=== PATIENT | female | born 1975 | race Caucasian/White ===

== ENCOUNTER 2016-08-20 13:37 | Emergency (ER) | payer BC ==
[2016-08-20 13:44] VITALS: BP 111/53; PULSE 64; TEMP 97.9; BMI 31.3
--- NOTE | 2016-08-20 13:50 | PDOC ---
History of Present Illness - General Chief Complaint: Injury Stated Complaint: LT ELBOW PAIN History Source: Patient Exam Limitations: No Limitations - History of Present Illness Initial Comments: 08/20/16 13:47 41y F no pmhx presenst s/p mechanical fall - states she fell fowrard, landing on her L elbow after slipping on some salt. The pt denies any head injury, neck pain, back pain or pain elswhere. +pain when she moves her L arm and mild tingling in the extremities. denies any weakness, wounds. no pain elswehre. Past History - Past Medical History Allergies/Adverse Reactions: Allergies Allergy/AdvReac Type Severity Reaction Status Date / Time Sulfa (Sulfonamide Allergy Rash Verified 06/14/15 21:37 Antibiotics) Home Medications: Ambulatory Orders NK [No Known Home Medication] 08/20/16 Anemia: No Asthma: No Cancer: No GI Disorders: Yes (GERD) Psychiatric Problems: Yes (anxeity) - Immunization History Immunization Up to Date: Yes - Psycho/Social/Smoking Cessation Hx Anxiety: No Suicidal Ideation: No Smoking Status: No Smoking History: Never smoked Have you smoked in the past 12 months: No Number of Cigarettes Smoked Daily: 0 Hx Alcohol Use: Yes (6-8 drinks a week) Drug/Substance Use Hx: No Substance Use Type: None Review of Systems - Review of Systems Able to Perform ROS?: Yes Comments:: 08/20/16 13:47 Constitutional - no reported Fever, Chills, weakness, HEENT: no reported vision changes, sore throat Musculskelatal - +L elboiw pain no reported back pain, joint swelling skin - no reported bruising, erythema, rash neurological: no reported headache, numbness, focal weakness, tingling, ataxia, weakness hematologic: no reported anemia, easy bruising, easy bleeding *Physical Exam - Vital Signs Last Vital Signs Temp Pulse Resp BP Pulse Ox 97.9 F 64 16 111/53 100 08/20/16 13:39 08/20/16 13:39 08/20/16 13:39 08/20/16 13:39 08/20/16 13:39 - Physical Exam Comments: 08/20/16 13:48 GENERAL: The patient is awake, alert, and fully oriented, Nontoxic - in no acute distress. HEAD: Normocephalic, atraumatic. EXTREMITIES: minimal ttp on the L olecrenon, no pain on latera/medial epicondyle , no pain on shoulder/humers, sensation intact, n/v intact otherwise. able to supinate/pronate, flex extend elbow, no limitation of ROM of shoulder/ wrist/hand. ED Treatment Course - RADIOLOGY Radiology Studies Ordered: Category Date Time Status ELBOW-LEFT [RAD] Stat Radiology 08/20/16 13:40 Ordered Medical Decision Making - Medical Decision Making 08/20/16 13:49 suspect elbow contusion s/p mechanical fall no other injuries or complaints doubt fx but with localized tenderness in setting of trauma will obtain xray pt declines pain medications currently 08/20/16 14:06 xrays negative for acute fracture no signs of fat pad noted will dc the pt with supportive measures and pmd fu return precautions were discussed I discussed the physical exam findings, ancillary test results and final diagnoses with the patient. I answered all of the patient's questions. The patient was satisfied with the care received and felt comfortable with the discharge plan and treatment plan. The patient will call their primary care physician within 24 hours to arrange follow-up and will return to the Emergency Department with any new, persistent or worsening symptoms. *DC/Admit/Observation/Transfer Diagnosis at time of Disposition: Elbow pain, left - Discharge Dispostion Disposition: HOME Condition at time of disposition: Improved Admit: No - Referrals Referrals: Alessandro Lezama MD [Primary Care Provider] - - Patient Instructions Printed Discharge Instructions: DI for Elbow Pain Additional Instructions: Return to the emergency department immediately with ANY new, persistent or worsening symptoms. Take ibuprofen or Tylenol as needed for pain. You MUST call and follow up with your doctor in 3-4 days for further evaluation of your symptoms. Results were discussed with you. Please make sure your doctor reviews the results of your emergency evaluation.
== END 2016-08-20 14:17 | disposition home or self-care (01) ==
LOC: FER 13:37
DX: M25.522 Pain in left elbow (principal); W18.39XA Other fall on same level, initial encounter; Y93.9 Activity, unspecified; Y92.9 Unspecified place or not applicable; F41.9 Anxiety disorder, unspecified; K21.9 Gastro-esophageal reflux disease without esophagitis
CPT/HCPCS: 73070-TC-LT; 99282-25

== ENCOUNTER 2017-07-30 07:07 | Emergency (ER) | payer BC ==
[2017-07-30] MEDS ORDERED: ACETAMINOPHEN 325 MG TABLET (FP) PO ONE (07:17)
[2017-07-30 07:25] VITALS: BP 122/44; PULSE 79; TEMP 98.4; BMI 31.3
--- NOTE | 2017-07-30 07:25 | PDOC ---
History of Present Illness - General Chief Complaint: Injury Stated Complaint: left knee injury, back pain Time Seen by Provider: 07/30/17 07:16 History Source: Patient Exam Limitations: No Limitations - History of Present Illness Initial Comments: 07/30/17 07:22 42y F no pmhx presents with complaint of fall. The pt was coming out of her house when she slipped off ice on her porch and she landed on her L knee. She saw a little cut and contnued to come here. Here she noticed sh was bleeding profusely from her knee. She endorses yeimi epain to her L knee/mueller. She also noticed soreness in her lower back. She was able to break her fall on her hands and didnt hit her head/face. no neck pain. no loc. tetanus UTD (in 2015 s/p lac) PMD: Teja Past History - Past Medical History Allergies/Adverse Reactions: Allergies Allergy/AdvReac Type Severity Reaction Status Date / Time Sulfa (Sulfonamide Allergy Rash Verified 07/30/17 07:11 Antibiotics) Home Medications: Ambulatory Orders Ciprofloxacin [Cipro (Restricted To Id)] 500 mg PO Q12H 07/30/17 Anemia: No Asthma: No Cancer: No GI Disorders: Yes (GERD) Psychiatric Problems: Yes (anxeity) - Immunization History Immunization Up to Date: Yes - Suicide/Smoking/Psychosocial Hx Smoking Status: No Smoking History: Never smoked Have you smoked in the past 12 months: No Number of Cigarettes Smoked Daily: 0 Hx Alcohol Use: Yes (6-8 drinks a week) Drug/Substance Use Hx: No Substance Use Type: None Review of Systems - Review of Systems Able to Perform ROS?: Yes Comments:: 07/30/17 07:24 HEENT: no reported vision changes, Cardiac: no reported chest pain, palpitations, light headedness, Abd/GI: no reported abd pain, nausea, vomiting Musculskelatal - +back ache/soreness, +L knee pain no reported joint swelling skin - +abrasion/laceration no reported bruising, erythema, rash neurological: no reported headache, numbness, focal weakness, tingling, ataxia, hematologic: no reported anemia, easy bruising, easy bleeding *Physical Exam - Physical Exam Comments: 07/30/17 07:25 GENERAL: The patient is awake, alert, and fully oriented, Nontoxic - in no acute distress. HEAD: Normocephalic, atraumatic. EYES: extraocular movements intact, sclera anicteric, conjunctiva clear. NECK: Normal range of motion, supple BACK: No midline tenderness in cervical/throacic/lumbar region, mild paraspinal tenderness over lumbar region b/l ABDOMEN: Soft, nontender No guarding, no rebound. . No CVA tenderness EXTREMITIES: Normal ROM of RLE, L hip/knee/ankle, mild tenderness to palpation at tibeal plateu and over fibular head NEUROLOGICAL: No facial assymetry, Normal speech, normal gait PSYCH: Normal mood, normal affect. SKIN: 1cm laceration over tibeal plateu Procedures - Consent Consent obtained: Verbal - Laceration/Wound Repair Right Anterior Leg Wound Length: to 2.5 cm Wound Explored: clean Wound's Depth, Shape: superficial Irrigated w/ Saline: Yes Anesthesia: 1% Lidocaine Amount of Anesthetic (ccs): 5 Wound Debrided: minimal Wound Repaired With: Sutures Suture Size/Type: 4:0 Number of Sutures: 3 Layer Closure: No Sterile Dressing Applied: Yes ED Treatment Course - RADIOLOGY Radiology Studies Ordered: Category Date Time Status KNEE 3 POS-LEFT [RAD] Stat Radiology 07/30/17 07:16 Ordered LEG TIB/FIB-LEFT [RAD] Stat Radiology 07/30/17 07:16 Ordered SPINE-LUMBAR ONLY [RAD] Stat Radiology 07/30/17 07:16 Ordered Medical Decision Making - Medical Decision Making 07/30/17 07:28 will r/o fx of knee if none, aniceto repair laceration will obtain lumbar xray, suspect back strain will giv tylenol for pain here tetanus UTD 07/30/17 10:37 no fx on xrays lac closed with 3x 4.0 monocryl with good approximation after irrigation with 500c of NS no fb noted, clean will have pt return in 10-14 days for suture removal I discussed the physical exam findings, ancillary test results and final diagnoses with the patient. I answered all of the patient's questions. The patient was satisfied with the care received and felt comfortable with the discharge plan and treatment plan. The patient will call their primary care physician within 24 hours to arrange follow-up and will return to the Emergency Department with any new, persistent or worsening symptoms. *DC/Admit/Observation/Transfer Diagnosis at time of Disposition: Laceration of leg Qualifiers: Encounter type: initial encounter Laterality: right Qualified Code(s): S81.811A - Laceration without foreign body, right lower leg, initial encounter Abrasion of leg Qualifiers: Encounter type: initial encounter Laterality: right Qualified Code(s): S80.811A - Abrasion, right lower leg, initial encounter Low back pain Qualifiers: Chronicity: acute Back pain laterality: bilateral - Discharge Dispostion Disposition: HOME Condition at time of disposition: Improved Admit: No - Referrals Referrals: Alessandro Lezama MD [Staff Physician] - - Patient Instructions Printed Discharge Instructions: DI for Laceration Repair -- Simple, DI for Abrasion, DI for Low Back Pain Additional Instructions: Return to the emergency department immediately with ANY new, persistent or worsening symptoms including any redness, bleeding, purulent discharge, swelling or other concerns. Keep the area clean and dry for 48 hours. Afterwards he may clean gently with soap and water. Apply bacitracin twice a day. Keep the area away from the sun for the next 9 months, please use sunscreen and wear a hat if you need to be in the sun to improve appearance of the scar. Return in 10 days for suture removal. You MUST call and follow up with your doctor tomorrow for further evaluation of your symptoms. Results were discussed with you. Please make sure your doctor reviews the results of your emergency evaluation. Print Language: LIBYAN - Post Discharge Activity
[2017-07-30] MEDS ORDERED: ACETAMINOPHEN 325 MG TABLET (FP) ONE (07:32)
== END 2017-07-30 10:51 | disposition home or self-care (01) ==
LOC: FER 07:07
PROC: 0HQKXZZ Repair Right Lower Leg Skin, External Approach (ICD-10-PCS; principal; 2017-07-30)
DX: S81.811A Laceration without foreign body, right lower leg, initial encounter (principal); S80.811A Abrasion, right lower leg, initial encounter; W00.1XXA Fall from stairs and steps due to ice and snow, initial encounter; Y93.89 Activity, other specified; Y92.9 Unspecified place or not applicable
CPT/HCPCS: 72100-TC-FY; 73130-TC-RT-FY; 73562-TC-LT-FY; 73590-TC-LT-FY; 99282-25

== ENCOUNTER 2017-08-09 16:33 | Emergency (ER) | payer BC ==
[2017-08-09 16:42] VITALS: BMI 30.5
[2017-08-09 16:44] VITALS: BP 113/67; PULSE 86; TEMP 98.1
[2017-08-09] MEDS ORDERED: CEPHALEXIN MONOHYDRATE 500 MG CAPSULE (UD) PO ONE (17:05)
--- NOTE | 2017-08-09 17:07 | PDOC ---
History of Present Illness - General Chief Complaint: Suture/Staple Removal(Here) Stated Complaint: LEFT KNEE SUTURE REMOVAL Time Seen by Provider: 08/09/17 16:36 History Source: Patient Exam Limitations: No Limitations - History of Present Illness Initial Comments: 08/09/17 17:01 Patient is a 42F here today who is here for suture removal. She fell on her porch 10 days ago. X-rays were negative. 3 sutures were placed. She states that her leg has remained swollen and has some small amount of erythema surrounding the wound. She denies discharge, fevers, chills, nausea, vomiting. Past History - Past Medical History Allergies/Adverse Reactions: Allergies Allergy/AdvReac Type Severity Reaction Status Date / Time Sulfa (Sulfonamide Allergy Rash Verified 08/09/17 16:35 Antibiotics) Home Medications: Ambulatory Orders Ciprofloxacin [Cipro (Restricted To Id)] 500 mg PO Q12H 07/30/17 Cephalexin Monohydrate [Keflex -] 500 mg PO Q6H #28 capsule 08/09/17 Anemia: No Asthma: No Cancer: No COPD: No GI Disorders: Yes (GERD) Psychiatric Problems: Yes (anxeity) - Immunization History Immunization Up to Date: Yes - Suicide/Smoking/Psychosocial Hx Smoking Status: No Smoking History: Never smoked Have you smoked in the past 12 months: No Number of Cigarettes Smoked Daily: 0 Hx Alcohol Use: No Drug/Substance Use Hx: No Substance Use Type: None Review of Systems - Review of Systems Comments:: 08/09/17 17:06 GENERAL/CONSTITUTIONAL: No fever or chills. CARDIOVASCULAR: No chest pain or shortness of breath RESPIRATORY: No cough, wheezing, or hemoptysis. GASTROINTESTINAL: No nausea, vomiting, diarrhea or constipation. MUSCULOSKELETAL: No joint or muscle swelling or pain. No neck or back pain. SKIN: Erythema around wound NEUROLOGIC: No headache, vertigo, loss of consciousness, or change in strength/ sensation. HEMATOLOGIC/LYMPHATIC: No anemia, easy bleeding, or history of blood clots. *Physical Exam - Vital Signs Last Vital Signs Temp Pulse Resp BP Pulse Ox 98.1 F 86 18 113/67 100 08/09/17 16:34 08/09/17 16:34 08/09/17 16:34 08/09/17 16:34 08/09/17 16:34 - Physical Exam Comments: 08/09/17 17:06 GENERAL: Awake, alert, and fully oriented, in no acute distress HEAD: No signs of trauma, normocephalic, atraumatic EYES: PERRLA, EOMI, sclera anicteric, conjunctiva clear ENT: Auricles normal inspection, hearing grossly normal, nares patent, oropharynx clear without exudates. Moist mucosa EXTREMITIES: Healing ecchymosis over left distal leg. Swollen leg. 2x2cm area of erythema surrounding wound, well approximated. NEUROLOGICAL: Cranial nerves II through XII grossly intact. Normal speech, normal gait, no focal sensorimotor deficits SKIN: Warm, Dry, normal turgor Procedures - Additional Procedures Additional Procedures: other (3 sutures removed) Progress: 08/09/17 17:08 Well tolerated no complications. Medical Decision Making - Medical Decision Making 08/09/17 17:08 Patient is a 42F here today for suture removal. Vital signs stable and normal. Will treat cellulitis around wound with keflex qid for seven days. Wrapped leg and gave instructions to elevate leg to reduce swelling. Alert and ambulatory at follow up. Will instruct to follow up with PCP. *DC/Admit/Observation/Transfer Diagnosis at time of Disposition: Cellulitis - Discharge Dispostion Disposition: HOME Condition at time of disposition: Good Admit: No - Prescriptions Prescriptions: Cephalexin Monohydrate [Keflex -] 500 mg PO Q6H #28 capsule - Referrals - Patient Instructions Printed Discharge Instructions: DI for Cellulitis -- Adult, DI for Suture Removal Additional Instructions: You were seen today in the ED for suture removal and cellulitis of the leg. You were prescribed an antibiotic and it was sent to your pharmacy. You were given your first dose in the ED, take your next dose before bed tonight. Please return if you have any new, worsening or concerning symptoms. Specifically, please return if the swelling in your leg does not improve. - Post Discharge Activity
[2017-08-09] MEDS ORDERED: CEPHALEXIN MONOHYDRATE 500 MG CAPSULE (UD) ONE (17:08)
--- NOTE | 2017-08-09 17:13 | PDOC ---
Attending Attestation - Resident Resident Name: Jameel Griffin - ED Attending Attestation I have performed the following: I have examined & evaluated the patient, The case was reviewed & discussed with the resident, I agree w/resident's findings & plan, Exceptions are as noted - HPI HPI: 08/09/17 17:06 42-year-old female with no past medical history returns immersed department approximate one half weeks after slipping and falling for suture removal. Patient denies any fevers or chills but noted that she was developing mild erythema surrounding the skin site. Otherwise ambulatory. She states that she has not been elevating her leg as much as she should be. She has had persistent ecchymosis after the fall which has gradually improved. States that swelling has somewhat improved but not resolved. She denies any numbness or weakness. - Physicial Exam PE: 08/09/17 17:08 GENERAL: Awake, alert, and fully oriented, in no acute distress. HEAD: No signs of trauma EYES: PERRLA, EOMI, sclera anicteric, conjunctiva clear ENT: Auricles normal inspection, hearing grossly normal, nares patent, EXTREMITIES: Normal range of motion, no edema. No clubbing or cyanosis. No cords, erythema, or tenderness NEUROLOGICAL: Cranial nerves II through XII grossly intact. Normal speech, normal gait SKIN: Very mild surrounding erythema along the proximal tibia, well granulated healing wound. [address] No fluctuance or induration. Ecchymosis and mild swelling along the left lower extremity. - Medical Decision Making 08/09/17 17:09 Vital Signs Temp Pulse Resp BP Pulse Ox 98.1 F 86 18 113/67 100 08/09/17 16:34 08/09/17 16:34 08/09/17 16:34 08/09/17 16:34 08/09/17 16:34 I suspect that there is a mild cellulitis from the wound. However, sutures can be removed. [address] Griffin. We should initiate keflex for 1 week. REMI wrap applied and patient instructed to elevate the leg. I have low suspicion for DVT at this time given patient is ambulatory and with mild cellulitis and inflammation. However, will instruct the patient continues to have worsening pain or swelling , will instruct the patient to return to the ER for an ultrasound.
== END 2017-08-09 17:27 | disposition home or self-care (01) ==
LOC: FER 16:33
DX: Z48.02 Encounter for removal of sutures (principal); L03.90 Cellulitis, unspecified
CPT/HCPCS: 99282-25

== ENCOUNTER 2017-09-26 12:21 | Emergency (ER) | payer BC ==
[2017-09-26 13:02] VITALS: BP 116/81; PULSE 86; TEMP 98; BMI 32.4
[2017-09-26] MEDS ORDERED: DEXAMETHASONE SOD PHOSPHATE 10 MG/1 ML VIAL IM ONE (13:33)
[2017-09-26] MEDS ORDERED: KETOROLAC TROMETHAMINE 60 MG/2 ML VIAL IM ONE (13:33)
--- NOTE | 2017-09-26 13:41 | PDOC ---
History of Present Illness - General Chief Complaint: Back Pain Stated Complaint: BACK PAIN Time Seen by Provider: 09/26/17 13:07 History Source: Patient Exam Limitations: No Limitations - History of Present Illness Initial Comments: 09/26/17 13:55 Patient states slipped and fell down 3 steps one week ago landed on her buttock but re-exacerbating and old low back pain and spasm. States pain is low back with radiation down buttock down posterior aspect of leg. denies problem with bowel or bladder, and denies fever. Was seen byPMD and Flexeril and gabapentin 2 days ago. Patient states tried both of those medications with no relief. Patient here hoping for different medications or treatment . Occurred: reports: just prior to arrival Severity: reports: mild Pain Location: reports: back Method of Injury: Yes: unknown, fall Modifying Factors: improves with: None, pain medication Loss of Consciousness: no loss of consciousness Associated Symptoms (Fall): denies symptoms Past History - Travel Traveled outside of the country in the last 30 days: No Close contact w/someone who was outside of country & ill: No - Past Medical History Allergies/Adverse Reactions: Allergies Allergy/AdvReac Type Severity Reaction Status Date / Time Sulfa (Sulfonamide Allergy Rash Verified 09/26/17 12:31 Antibiotics) Home Medications: Ambulatory Orders Cyclobenzaprine HCl [Flexeril -] 10 mg PO TID 09/26/17 Gabapentin [Neurontin -] 300 mg PO Q8H 09/26/17 Ibuprofen [Advil -] 400 mg PO QID 09/26/17 Methocarbamol [Robaxin -] 1,500 mg PO Q8H PRN #20 tablet 09/26/17 Naproxen [Naprosyn] 500 mg PO Q8H PRN #30 tablet 09/26/17 predniSONE [Deltasone -] 20 mg PO BID #8 tablet 09/26/17 Anemia: No Asthma: No Cancer: No COPD: No GI Disorders: Yes (GERD) Psychiatric Problems: Yes (anxeity) - Immunization History Immunization Up to Date: Yes - Suicide/Smoking/Psychosocial Hx Smoking Status: No Smoking History: Never smoked Have you smoked in the past 12 months: No Number of Cigarettes Smoked Daily: 0 Hx Alcohol Use: No Drug/Substance Use Hx: No Substance Use Type: None Review of Systems - Review of Systems Able to Perform ROS?: Yes Is the patient limited Sami proficient: Yes Constitutional: Yes: Symptoms Reported, See HPI, Malaise HEENTM: Yes: See HPI. No: Symptoms Reported Respiratory: No: Symptoms reported Musculoskeletal: Yes: Symptoms Reported, See HPI, Back Pain, Muscle Pain, Muscle Weakness Integumentary: Yes: See HPI. No: Symptoms Reported, Bruising, Rash Neurological: Yes: Symptoms reported, Headache All Other Systems: Reviewed and Negative *Physical Exam - Vital Signs Last Vital Signs Temp Pulse Resp BP Pulse Ox 98 F 86 18 116/81 99 09/26/17 12:59 09/26/17 12:59 09/26/17 12:59 09/26/17 12:59 09/26/17 12:59 - Physical Exam General Appearance: Yes: Nourished, Appropriately Dressed, Apparent Distress, Mild Distress HEENT: positive: ROXIE, Normal ENT Inspection, TMs Normal, Pharynx Normal Neck: positive: Supple. negative: Tender Respiratory/Chest: positive: Lungs Clear, Normal Breath Sounds Gastrointestinal/Abdominal: positive: Tender, Soft Musculoskeletal: positive: Normal Inspection, Decreased Range of Motion, Muscle Spasm (tense tight musculature to mid low lumbar spine muscles wiht reproduced pain with pressure points down left posterior leg. ). negative: Vertebral Tenderness Extremity: positive: Normal Capillary Refill, Normal Inspection, Normal Range of Motion, Tender Integumentary: positive: Dry, Warm, Pale. negative: Rash, Swelling, Ecchymosis Neurologic: positive: fish conservationist II-XII NML intact, Fully Oriented, Alert, Normal Mood/ Affect, Normal Response, Motor Strength 5/5 Progress Note - Progress Note Progress Note: Persistent low back spasm, will change medications to Robaxin, Naprosyn, and steroids and given 2 tablets of Percocet. Encouraged patient to follow-up with orthopedist as well probably need further testing, perhaps physical therapy or other medication *DC/Admit/Observation/Transfer Diagnosis at time of Disposition: Muscle spasm of back - Discharge Dispostion Disposition: HOME Condition at time of disposition: Stable Admit: No - Referrals Referrals: Paolo Grayson MD [Staff Physician] - - Patient Instructions Printed Discharge Instructions: DI for Back Strain or Sprain Additional Instructions: Rest, no heavy lifting or exercise until pain is resolved Hot soaks to neck and low back as often as possible/hot showers or Jacuzzis No massage or therapy until spasm is gone Continue Naprosyn 500 mg tablet every 8 hours for the next 3 days then as needed for pain and swelling Prednisone 40 mg daily for the next 5 days total Robaxin- 2 - 750 mg tablets every 8 hours for 2 days then 1 -750 mg tablet every 8 hours as needed for spasm May use 1/2-1 tablet of Percocet for severe pain , may make dizzy and sleepy If not significant improvement within 24 hours with medication and rest regime, followup with private physician for change in medications and /or therapy. - Post Discharge Activity Forms/Work/School Notes: Back to Work
== END 2017-09-26 14:11 | disposition home or self-care (01) ==
LOC: JERFT 12:21
PROC: 3E0233Z Introduction of Anti-inflammatory into Muscle, Percutaneous Approach (ICD-10-PCS; principal; 2017-09-26)
PROC: 3E0233Z Introduction of Anti-inflammatory into Muscle, Percutaneous Approach (ICD-10-PCS; 2017-09-26)
DX: M62.830 Muscle spasm of back (principal); W10.8XXA Fall (on) (from) other stairs and steps, initial encounter; Y93.89 Activity, other specified; Y92.89 Other specified places as the place of occurrence of the external cause; Y99.8 Other external cause status; K21.9 Gastro-esophageal reflux disease without esophagitis; F41.9 Anxiety disorder, unspecified
CPT/HCPCS: 99281-25; J1100

== ENCOUNTER 2017-10-15 17:51 | Emergency (ER) | payer BC ==
[2017-10-15 18:28] VITALS: BP 129/65; PULSE 75; TEMP 98; BMI 32.1
[2017-10-15] MEDS ORDERED: KETOROLAC TROMETHAMINE 60 MG/2 ML VIAL IM ONE (19:04)
--- NOTE | 2017-10-15 19:09 | PDOC ---
History of Present Illness - General Chief Complaint: Back Pain Stated Complaint: BACK PAIN Time Seen by Provider: 10/15/17 18:33 History Source: Patient - History of Present Illness Occurred: reports: other Pain Location: reports: back Past History - Past Medical History Allergies/Adverse Reactions: Allergies Allergy/AdvReac Type Severity Reaction Status Date / Time Sulfa (Sulfonamide Allergy Rash Verified 10/15/17 18:23 Antibiotics) Home Medications: Ambulatory Orders Cyclobenzaprine HCl [Flexeril -] 10 mg PO TID 09/26/17 Gabapentin [Neurontin -] 300 mg PO Q8H 09/26/17 Ibuprofen [Advil -] 400 mg PO QID 09/26/17 Methocarbamol [Robaxin -] 1,500 mg PO Q8H PRN #20 tablet 09/26/17 Naproxen [Naprosyn] 500 mg PO Q8H PRN #30 tablet 09/26/17 Oxycodone HCl/Acetaminophen [Percocet 5-325 mg Tablet] 1 tab PO Q6H #15 tablet MDD 4 tabs 10/15/17 Oxycodone HCl/Acetaminophen [Percocet 5/325 -] 1 tab PO Q6H #15 tablet MDD 4 tabs 10/15/17 Oxycodone HCl/Acetaminophen [Percocet 5/325 -] 1 tab PO Q6H #15 tablet MDD 4 tabs 10/15/17 Anemia: No Asthma: No Cancer: No COPD: No GI Disorders: Yes (GERD) Psychiatric Problems: Yes (ANXIETY) - Immunization History Immunization Up to Date: Yes - Suicide/Smoking/Psychosocial Hx Smoking Status: No Smoking History: Never smoked Have you smoked in the past 12 months: No Number of Cigarettes Smoked Daily: 0 Information on smoking cessation initiated: No Hx Alcohol Use: No Drug/Substance Use Hx: No Substance Use Type: None Review of Systems - Review of Systems Constitutional: No: Chills, Fever ABD/GI: No: Abdominal cramping Musculoskeletal: Yes: Back Pain Neurological: No: Numbness, Tingling, Weakness *Physical Exam - Vital Signs Last Vital Signs Temp Pulse Resp BP Pulse Ox 98 F 75 18 129/65 97 10/15/17 18:23 10/15/17 18:23 10/15/17 18:23 10/15/17 18:23 10/15/17 18:23 - Physical Exam General Appearance: Yes: Appropriately Dressed. No: Apparent Distress HEENT: positive: Normal Voice Neck: positive: Supple Respiratory/Chest: negative: Respiratory Distress Gastrointestinal/Abdominal: positive: Soft. negative: Tender Musculoskeletal: positive: Vertebral Tenderness (to R lower back, neg SLR) Integumentary: positive: Dry, Warm Neurologic: positive: Fully Oriented, Alert, Normal Mood/Affect, Motor Strength 5/5 Medical Decision Making - Medical Decision Making 10/15/17 19:09 42-year-old female, history of chronic lower back pain, f/u with DR Alejo of ortho w/ recent MRI demonstrating multiple herniated discs to lumbar spine as per patient, currently undergoing physical therapy and scheduled for epidural injection w/ Dr Rojas of pain management in the near future. Here because she continues to have pain with no relief from flexeril, naproxen or robaxin at home. States pain sometimes radiates to right foot which is not new for patient. Denies weakness, bowel or bladder incontinence or saddle anesthesia. Patient well-appearing and stable with no red flags at this time, i.e. cauda equina. Dose of tylenol given in ED. Will dc with Percocet to continue following up with her doctors *DC/Admit/Observation/Transfer Diagnosis at time of Disposition: Chronic back pain - Discharge Dispostion Disposition: HOME Condition at time of disposition: Stable - Prescriptions Prescriptions: Oxycodone HCl/Acetaminophen [Percocet 5-325 mg Tablet] 1 tab PO Q6H #15 tablet MDD 4 tabs Oxycodone HCl/Acetaminophen [Percocet 5/325 -] 1 tab PO Q6H #15 tablet MDD 4 tabs Oxycodone HCl/Acetaminophen [Percocet 5/325 -] 1 tab PO Q6H #15 tablet MDD 4 tabs - Referrals Referrals: Alessandro Lezama MD [Primary Care Provider] - - Patient Instructions - Post Discharge Activity
[2017-10-15] MEDS ORDERED: KETOROLAC TROMETHAMINE 60 MG/2 ML VIAL ONE (19:10)
[2017-10-15] MEDS ORDERED: ACETAMINOPHEN 325 MG TABLET (FP) ONE (19:16)
[2017-10-15] MEDS ORDERED: ACETAMINOPHEN 325 MG TABLET (FP) PO ONE (19:18)
== END 2017-10-15 19:53 | disposition home or self-care (01) ==
LOC: JERFT 17:51
DX: M54.5 Low back pain (principal); G89.29 Other chronic pain; K21.9 Gastro-esophageal reflux disease without esophagitis; F41.9 Anxiety disorder, unspecified
CPT/HCPCS: 99281-25

== ENCOUNTER 2020-01-28 10:33 | Emergency (ER) | payer BC ==
[2020-01-28 10:53] VITALS: BP 112/79; PULSE 97; TEMP 98.2; BMI 25.0
[2020-01-28] MEDS ORDERED: ACETAMINOPHEN 325 MG TABLET (FP) PO ONE (11:25)
--- NOTE | 2020-01-28 11:25 | PDOC ---
History of Present Illness - General Chief Complaint: Injury Stated Complaint: RIGHT ELBOW/WRIST PAIN Time Seen by Provider: 01/28/20 10:38 History Source: Patient Exam Limitations: No Limitations - History of Present Illness Initial Comments: Peter Amin is a 44 yo M w a hx of anxiety and depression (Ativan) who presents to the [place] er with dorsal right distal arm pain after a tree branch landed on her arm yesterday. She states her bone looks swollen and hurts when she pushes on her bone. Symptoms are moderate and persistent. Endorses full ROM about the wrist, all fingers, and elbow. Denies any loss of sensation. States her wrist hurt her last night while she was sleeping. Is concerned bc she is right handed dominant and wants to make sure nothing bad happened to her arm. PCP: Salvador Perez Ortho: [facility] Allergies: Sulfa drugs PSH: Tubal ligation and Partial hysterectomy (fibroids) Social Hx: Recreational alcohol usage. denies illicit drug usage Past History - Medical History Allergies/Adverse Reactions: Allergies Allergy/AdvReac Type Severity Reaction Status Date / Time Sulfa (Sulfonamide Allergy Unknown Rash Verified 01/28/20 10:40 Antibiotics) Home Medications: Ambulatory Orders NK [No Known Home Medication] 01/28/20 Anemia: No Asthma: No Cancer: No COPD: No GI Disorders: Yes (GERD) Disorders: Yes (VAGINITIS) Psychiatric Problems: Yes (ANXIETY) - Reproductive History Is Patient Now?: No - Immunization History Immunization Up to Date: Yes - Psycho-Social/Smoking History Smoking Status: No Smoking History: Never smoked Have you smoked in the past 12 months: No Number of Cigarettes Smoked Daily: 0 - Substance Abuse Hx (Audit-C & DAST Scrn) How often the patient has a drink containing alcohol: Monthly or less Score: In Men: 4 or > Positive; In Women: 3 or > Positive: 1 Screen Result (Pos requires Nsg. Audit-10AR): Negative In the last yr the pt used illegal drug/Rx for NonMed reason: No Score: Yes response is considered Positive: 0 Screen Result (Positive result requires Nsg. DAST-10): Negative Review of Systems - Review of Systems Able to Perform ROS?: Yes Comments:: CONSTITUTIONAL: Absent: fever, no chills, no fatigue EYES: Absent: visual changes ENT: Absent: ear pain, no sore throat CARDIOVASCULAR: Absent: chest pain, no palpitations RESPIRATORY: Absent: cough, no SOB GI: Absent: abdominal pain, no nausea, no vomiting, no constipation, no diarrhea GENITOURINARY: Absent: dysuria, no frequency, no hematuria MUSKULOSKELETAL: Present: Arthralgia Absent: back pain, no myalgia SKIN: Absent: rash NEURO: Absent: headache *Physical Exam - Vital Signs Last Vital Signs Temp Pulse Resp BP Pulse Ox 98.2 F 97 H 15 112/79 100 01/28/20 10:37 01/28/20 10:37 01/28/20 10:37 01/28/20 10:37 01/28/20 10:37 - Physical Exam RIGHT HAND: There is point tenderness at the distal aspect of the ulna bone. There is also mild distal ulnar swelling. 2+ radial and ulnar pulses. 5/5 sensation in R extremity compared to left. Full 5/5 strength and sensation in radial, ulnar, and median nerve distributions. 5/5 strength on wrist flexion and extension. GENERAL: Well-appearing, well-nourished. No apparent distress. HEENT: Normocephalic, atraumatic. PERRL, EOM intact. CARDIOVASCULAR: Normal S1, S2. Regular rate and rhythm. PULMONARY: No evidence of respiratory distress. Lungs clear to auscultation bilaterally. No wheezing, rales or rhonchi. ABDOMEN: Soft, non-distended, non-tender. EXTREMITIES: Normal ROM in all four extremities. No gross deformities. SKIN: Warm, dry. No rash NEUROLOGICAL: No focal neurological deficits. ED Treatment Course - RADIOLOGY Radiology Studies Ordered: Category Date Time Status ELBOW-RIGHT [RAD] Stat Radiology 01/28/20 10:38 Ordered FOREARM- RIGHT [RAD] Stat Radiology 01/28/20 10:39 Ordered WRIST W/HAND-RIGHT* [RAD] Stat Radiology 01/28/20 10:40 Ordered Medical Decision Making - Medical Decision Making Peter Amin is a 44 yo M w a hx of anxiety and depression (Ativan) who pre sents to the [place] er with dorsal right distal arm pain after a tree branch landed on her arm yesterday. She states her bone looks swollen and hurts when she pushes on her bone. Symptoms are moderate and persistent. Endorses full ROM about the wrist, all fingers, and elbow. Denies any loss of sensation. States her wrist hurt her last night while she was sleeping. Is concerned bc she is right handed dominant and wants to make sure nothing bad happened to her arm. Vital Signs Temp Pulse Resp BP Pulse Ox 98.2 F 97 H 15 112/79 100 01/28/20 10:37 01/28/20 10:37 01/28/20 10:37 01/28/20 10:37 01/28/20 10:37 DDx IBNLT: elbow vs forearm vs wrist injru, bone fx, dislocation, tendon/ligament injury Plan: XR, splint, analgesia, ortho FU - Splint applied - Patient will follow up with Ortho this week - Strict return precautions discussed with patient - Patient given multiple ortho referalls as requested by patient - Discussed in length the need for patient to rest hand for 1 week and not do intense physical activity with hand The patient appears clinically sober, has no evidence of clinical intoxication, is A&O x4, has no sustained nystagmus, and appears to be capable and have capacity to make reasonable decisions. The patient states they are currently in the emergency department, knows who the president is, states the correct time, correct day, and correct month. The patient is ambulatory in ER and has walked around the nursing station multiple times with a straight and steady gait, and is not ataxic. Tolerating PO well, ate a sandwich and drank juice. Denies having any SI or HI. Patient states will not be driving home. I discussed the physical exam findings, ancillary test results and final diagnoses with the patient. I answered all of the patient's questions. The patient was satisfied with the care received and felt comfortable with the discharge plan and treatment plan. The patient will call their primary care p hysician within 24 hours to arrange follow-up and will return to the Emergency Department with any new, persistent or worsening symptoms. Dispo: Home with ortho fu this week Please note, this clinical encounter is taking place during a federal and state health care emergency attributable to the novel [place] Virus pandemic. The [employer] of the Department of Health and Human Services has declared, pursuant to the Public Health Service Act 319F-3 (42 U.S.C. 247d-6d), that a covered persons activities related to medical countermeasures against COVID-19 will be immune from liability under Federal and State law. Discharge - Discharge Information Problems reviewed: Yes Clinical Impression/Diagnosis: Wrist pain Qualifiers: Laterality: right Qualified Code(s): M25.531 - Pain in right wrist Condition: Good Disposition: HOME - Admission No - Follow up/Referral Referrals: Salvador Perez MD [Primary Care Provider] - Conor Law DO [Staff Physician] - Jun Painting DO [Staff Physician] - Leo Alejo MD [Staff Physician] - Calvin Francisco MD [Staff Physician] - - Patient Discharge Instructions Patient Printed Discharge Instructions: DI for Wrist Pain Additional Instructions: You came into the ER with wrist pain. We did some x-rays and placed your arm flavia sling. Rest and ice your arm. Please follow up with an orthopedist if your pain does not go away in the next week. You must return to the Emergency Department with any new complaints, if your symptoms persist and do not improve or if you develop any other new or worsening concerns. You can take over the counter Tylenol or Advil as needed for pain. Take as directed on the package insert. Do not exceed the recommended dosage. As discussed, please call to follow up with your Primary Care physician in 1-2 days to discuss what happened to you in the emergency room, and make sure you are being looked after and taken care of. Your emergency room visit is not complete without this follow up appointment. Please read the attached handouts for further information about your ER visit and what you should do moving forward. Thank you for coming to the [place] ER. We hope you feel better soon! Print Language: BULGARIAN - Post Discharge Activity
[2020-01-28] MEDS ORDERED: ACETAMINOPHEN 500 MG TABLET (FP) ONE (11:37)
--- NOTE | 2020-01-28 12:02 | PDOC ---
Attending Attestation - Resident Resident Name: Eugene Grande - ED Attending Attestation I have performed the following: I have examined & evaluated the patient, The case was reviewed & discussed with the resident, I agree w/resident's findings & plan, Exceptions are as noted - HPI HPI: 01/28/20 12:01 44 years old past medical history significant for anxiety depression presents to the ED after a tree branch fell on her arm yesterday complaining of pain and tenderness over the distal ulnar and forearm. No deformity pain is worse with movement moderate to severe persistent constant no other injury sustained - Physicial Exam PE: 01/28/20 12:02 Vitals: Triage Vital signs reviewed General Appearance: No acute distress, well nourished well developed, Head: Atraumatic, Extremities: Full range of motion to all extremities, tenderness to palpation over the distal ulna and forearm no deformity noted slight bump over the distal ulnar styloid no bruising Skin: Warm and dry, no rashes or lesions, no rash, no petechiae Neuro: Strength intact to all extremities, sensation intact to all extremities, gait normal Psych: Normal mood, normal affect 01/28/20 12:02 - Medical Decision Making 01/28/20 12:02 44 years old with injury to right wrist and forearm. Tree branch hit her. No acute fracture dislocation noted on x-ray most likely bone bruise will place in splint given tenderness provided with orthopedic follow-up recommend rest ice NSAIDs Findings, need for follow-up and strict return instructions discussed with patient. Discharge - Discharge Information Problems reviewed: Yes Clinical Impression/Diagnosis: Wrist pain Qualifiers: Laterality: right Qualified Code(s): M25.531 - Pain in right wrist Condition: Good Disposition: HOME - Follow up/Referral Referrals: Leo Alejo MD [Staff Physician] - Conor Law DO [Staff Physician] - Salvador Perez MD [Primary Care Provider] - Jun Painting DO [Staff Physician] - Calvin Francisco MD [Staff Physician] - - Patient Discharge Instructions Patient Printed Discharge Instructions: DI for Wrist Pain Additional Instructions: You came into the ER with wrist pain. We did some x-rays and placed your arm flavia sling. Rest and ice your arm. Please follow up with an orthopedist if your pain does not go away in the next week. You must return to the Emergency Department with any new complaints, if your symptoms persist and do not improve or if you develop any other new or worsening concerns. You can take over the counter Tylenol or Advil as needed for pain. Take as directed on the package insert. Do not exceed the recommended dosage. As discussed, please call to follow up with your Primary Care physician in 1-2 days to discuss what happened to you in the emergency room, and make sure you are being looked after and taken care of. Your emergency room visit is not complete without this follow up appointment. Please read the attached handouts for further information about your ER visit and what you should do moving forward. Thank you for coming to the [facility]. We hope you feel better soon! Print Language: PUERTO RICAN - Post Discharge Activity
== END 2020-01-28 12:16 | disposition home or self-care (01) ==
LOC: FER 10:33
DX: M25.531 Pain in right wrist (principal)
CPT/HCPCS: 73070-TC-RT-FY; 73090-TC-RT-FY; 73110-TC-RT-FY; 73130-TC-RT-FY; 99285-25

== ENCOUNTER 2021-06-12 13:30 | Emergency (ER) | payer BC ==
[2021-06-12 13:39] VITALS: BP 132/80; PULSE 76; TEMP 99; BMI 29.7
== END 2021-06-12 14:59 | disposition home or self-care (01) ==
LOC: FER 13:30
PROC: 3E0234Z Introduction of Serum, Toxoid and Vaccine into Muscle, Percutaneous Approach (ICD-10-PCS; principal; 2021-06-12)
DX: S51.831A Puncture wound without foreign body of right forearm, initial encounter (principal); W54.0XXA Bitten by dog, initial encounter
CPT/HCPCS: 90715; 99284-25

== ENCOUNTER 2022-08-11 11:26 | Emergency (ER) | payer BC ==
[2022-08-11 11:39] VITALS: BP 128/69; PULSE 98; RESP 18; TEMP 99; BMI 29.1
== END 2022-08-11 12:00 | disposition home or self-care (01) ==
LOC: FER 11:26
DX: J06.9 Acute upper respiratory infection, unspecified (principal)
CPT/HCPCS: 0241U-QW; 99283-25

== ENCOUNTER 2023-02-08 22:05 | Emergency (ER) | payer BC ==
[2023-02-08 22:20] VITALS: BP 120/75; PULSE 72; RESP 16; TEMP 99; BMI 29.1
[2023-02-08] MEDS ORDERED: methylPREDNISolone NA SUCC 125 MG/2 ML VIAL IM ONE (22:28)
[2023-02-08] MEDS ORDERED: methylPREDNISolone NA SUCC 125 MG/2 ML VIAL ONE (22:40)
== END 2023-02-08 22:51 | disposition home or self-care (01) ==
LOC: FER 22:05
PROC: 3E023GC Introduction of Other Therapeutic Substance into Muscle, Percutaneous Approach (ICD-10-PCS; principal; 2023-02-08)
DX: T63.461A Toxic effect of venom of wasps, accidental (unintentional), initial encounter (principal); L29.9 Pruritus, unspecified; L53.9 Erythematous condition, unspecified
CPT/HCPCS: 99284-25